=== PATIENT | female | born 1990 | race Caucasian/White ===

== ENCOUNTER 2023-02-27 13:06 | Emergency (ER) | payer OTHER ==
[~2023-02-27] VITALS: Ht 167.6 cm
== END 2023-02-27 15:38 | disposition left against medical advice (07) ==
LOC: ED 13:06
DX: O26.893 Other specified pregnancy related conditions, third trimester (principal); R10.2 Pelvic and perineal pain; Z3A.28 28 weeks gestation of pregnancy

== ENCOUNTER 2025-02-26 18:41 | Emergency (ER) | payer OTHER ==
[~2025-02-26] VITALS: Ht 170.1 cm; Wt 59.0 kg
[2025-02-26] MEDS ORDERED: diazePAM 5 MG TAB PO ONE ×2 (18:55→20:15)
[2025-02-26 19:17] LABS: BASO # 0.1 10*3/uL (0.0-0.1); BASO % 0.8 % (0.0-1.0); EOS % 0.5 % (1.0-4.0); HEMATOCRIT 39.1 % (37.0-47.0); MEAN CELL VOLUME 84.3 fl (81.0-99.0); MEAN CORPUSCULAR HGB CONC 33.2 g/dl (33.0-37.0); MEAN PLATELET VOLUME 8.4 fl (9.6-12.3); MONO # 0.7 10*3/uL (0.1-1.0); MONO % 9.9 % (3.0-9.0); NEUT # 4.5 10*3/uL (2.3-7.9); NEUT % 67.5 % (47.0-73.0); PLATELET COUNT AUTOMATED 256 10*3/uL (130-400); RED BLOOD COUNT 4.64 10*6/uL (4.10-5.10); WHITE BLOOD COUNT 6.6 10*3/uL (4.8-10.8)
[2025-02-26 19:23] LABS: BILIRUBIN Negative (Negative); BLOOD 3+ (Negative); CLARITY Clear (Clear); COLOR Yellow (Yellow); GLUCOSE Negative (Negative); KETONE Trace (Negative); LEUKO ESTERASE Negative (Negative); NITRITE Negative (Negative); PH 5.5 (4.5-8.0); SPECIFIC GRAVITY >= 1.030 (1.001-1.030)
[2025-02-26 19:30] LABS: URINE AMPHETAMINES Positive (1000ng/ml); URINE BARBITURATES Negative (200ng/ml); URINE BENZODIAZEPINES Negative (200ng/ml); URINE CANNABINOIDS (THC) Positive (50ng/ml); URINE COCAINE Negative (300ng/ml); URINE METHADONE Negative (300ng/ml); URINE OPIATES Negative (300ng/ml); URINE PHENCYCLIDINE Negative (25ng/ml)
[2025-02-26 19:35] LABS: MUCOUS 1+; RBC 16-20 rbc/hpf (0-2)
[2025-02-26 19:36] LABS: BUN 30 mg/dl (9-23); CHLORIDE 104 mmol/L (98-107); CPK 366 U/L (34-171); POTASSIUM 3.1 mmol/L (3.4-5.1)
[2025-02-26 19:37] LABS: B-hCG (QUALITATIVE) NEGATIVE (NEGATIVE); ETHYL ALCOHOL < 3.0 mg/dl (<3)
[2025-02-26] MEDS ORDERED: diazePAM 2 MG TAB PO ONE (20:10)
[2025-02-26] MEDS ORDERED: SODIUM CHLORIDE 0.9% 1,000 ML IV ONE (20:50)
== END 2025-02-26 22:03 | disposition home or self-care (01) ==
LOC: ED 18:41
PROVIDERS: Emergency Medicine
DX: F15.10 Other stimulant abuse, uncomplicated (principal)

== ENCOUNTER 2025-02-28 10:03 | Emergency (ER) | payer OTHER ==
[~2025-02-28] VITALS: Ht 162.5 cm; Wt 56.7 kg
[2025-02-28] MEDS ORDERED: Ziprasidone Mesylate 20 MG VIAL IM ONE (10:35)
[2025-02-28] MEDS ORDERED: Water, Sterile 10 ML VIAL ONE (10:58)
== END 2025-02-28 12:43 | disposition left against medical advice (07) ==
LOC: ED 10:03
DX: F15.10 Other stimulant abuse, uncomplicated (principal)